=== PATIENT | male | born 1980 | race Caucasian/White ===

== ENCOUNTER 2020-08-09 21:36 | Emergency (ER) | payer BC, OTHER ==
[~2020-08-09] VITALS: Ht 180.3 cm; Wt 141.5 kg
--- NOTE | 2020-08-09 22:24 | NUR ---
COVID swab sent to lab for processing.
--- NOTE | 2020-08-09 23:33 | NUR ---
Patient discharged to home in stable condition. Written and verbal after care instructions given. Patient verbalizes understanding of instructions. Stressed follow up or return to ER for worsening s/s. Patient ambulated with steady gait. All belongings returned to patient prior to departure.
[2020-08-09 23:36] VITALS: BP 128/87
== END 2020-08-09 23:36 | disposition home or self-care (01) ==
LOC: ER 21:39
DX: R50.9 Fever, unspecified (principal); Z20.822 Contact with and (suspected) exposure to COVID-19; Z88.0 Allergy status to penicillin; Z87.892 Personal history of anaphylaxis; Z88.6 Allergy status to analgesic agent; E11.9 Type 2 diabetes mellitus without complications; Z86.16 Personal history of COVID-19
CPT/HCPCS: 86403; 87426; 99283; U0003; 87070; A4663